=== PATIENT | female | born 1995 | race Caucasian/White ===

== ENCOUNTER 2021-07-04 03:02 | Emergency (ER) | payer SELFPAY ==
[~2021-07-04] VITALS: Ht 162.6 cm; Wt 171.5 kg
--- NOTE | 2021-07-04 03:20 | NUR ---
PT BIBS FOR C/O L FORTH DIGIT LACERATION HIT THE BED. PT ALERT ORIENTED X4. AMBULATORY WITH SPONTANEOUS NON LABORED BREATHING.
[2021-07-04] MEDS ORDERED: LIDOCAINE HCL/MPF 1% 30 ML VIAL IJ ONE (03:42)
[2021-07-04 04:54] VITALS: BP 140/98
--- NOTE | 2021-07-04 04:54 | NUR ---
Patient discharged to home in stable condition. Written and verbal after care instructions given. Patient verbalizes understanding of instruction.
== END 2021-07-04 04:55 | disposition home or self-care (01) ==
LOC: ER 03:02
DX: S61.215A Laceration without foreign body of left ring finger without damage to nail, initial encounter (principal); Z91.010 Allergy to peanuts; W22.8XXA Striking against or struck by other objects, initial encounter; Y93.89 Activity, other specified; Y92.89 Other specified places as the place of occurrence of the external cause; Y99.8 Other external cause status
CPT/HCPCS: 12001; 99282; A6403; J3490